=== PATIENT | male | born 1995 | race Caucasian/White ===

== ENCOUNTER 2020-06-21 14:34 | Emergency (ER) | payer BC ==
[~2020-06-21] VITALS: Ht 172.7 cm; Wt 122.5 kg
[2020-06-21 15:02] VITALS: Ht 172.7 cm; Wt 122.5 kg
[2020-06-21 17:47] VITALS: BP 133/81
== END 2020-06-21 17:47 | disposition home or self-care (01) ==
LOC: ED 14:34
DX: T63.441A Toxic effect of venom of bees, accidental (unintentional), initial encounter (principal); T78.3XXA Angioneurotic edema, initial encounter; Y92.89 Other specified places as the place of occurrence of the external cause
CPT/HCPCS: J1100